=== PATIENT | male | born 1950 | race Caucasian/White ===

== ENCOUNTER 2024-04-02 07:48 | Day surgery (SDC) | payer MEDICARE ==
[2024-04-02] MEDS ORDERED: Lidocaine 1% PF 5 ML VIAL ONE (07:49)
[2024-04-02] MEDS ORDERED: Sodium Bicarbonate 2.5 MEQ/5 ML SDV ONE (07:49)
[2024-04-02 08:25] VITALS: BP 170/87; TEMP 99.1
[2024-04-02] MEDS ORDERED: Iopamidol-M 200 41% 20 ML VIAL ONE (09:55)
== END 2024-04-02 09:55 | disposition home or self-care (01) ==
LOC: CSHRAD 07:48
PROVIDERS: ATTEND Neurological Surgery
PROC: B00BYZZ Plain Radiography of Spinal Cord using Other Contrast (ICD-10-PCS; principal; 2024-04-02)
DX: M51.16 Intervertebral disc disorders with radiculopathy, lumbar region (principal); Z96.651 Presence of right artificial knee joint; E11.9 Type 2 diabetes mellitus without complications; Z79.84 Long term (current) use of oral hypoglycemic drugs
CPT/HCPCS: 62284; 72132; 77003; Q9966